=== PATIENT | female | born 1940 | race Caucasian/White ===

== ENCOUNTER 2017-09-25 11:13 | Observation (INO) | payer MEDICARE, BC ==
[~2017-09-25 11:13] MED LIST: ISOVUE-370 76%-LOCM 1 ML ONE
[2017-09-25] MEDS ORDERED: Nitroglycerin 2% Ointment 1 INCH/1 GM Packet ONE (11:36)
[2017-09-25 11:59] LABS: #Eosinphils 0.2 thou/uL (0.0-0.7); #Monocytes 0.8 thou/uL (0.11-0.59); #Neutrophils 6.2 thou/uL (1.40-6.50); %Basophils 0.4 % (0.0-1.0); %Eosinophils 2.3 % (0.0-10.0); %Lymphocytes 21.6 % (21.0-51.0); %Monocytes 8.5 % (0.0-10.0); %Neutrophils 67.2 % (42.0-75.0); Hemoglobin 13.8 g/dL (12.0-16.0); Mean Corpuscular HGB CONC 33.3 g/dL (32.0-36.0); Mean Corpuscular Hemoglobin 30.8 pg (27.0-31.0); Mean Corpuscular Volume 92.6 fl (81.0-99.0); Mean Platelet Volume 6.9 fL (7.4-10.4); Platelet Count 157 thou/uL (130-400); RBC Distribution Width 12.8 % (11.5-14.5); Red Blood Cell (RBC) Count 4.48 mill/uL (4.20-5.40); White Blood Cell (WBC) Count 9.2 thou/uL (4.8-10.8)
[2017-09-25 12:23] LABS: ALT (SGPT) 22 U/L (8-55); AST (SGOT) 35 U/L (5-34); Alkaline Phosphatase 73 U/L (40-150); Anion Gap 11 mmol/L (10-20); BUN (Urea Nitrogen) 15 mg/dL (9.8-20.1); Bilirubin, Total 0.9 mg/dL (0.2-1.2); CK (CPK) 94 U/L (29-168); Calc. Creatinine Clearance 0 mL/min (70-130); Calcium 9.9 mg/dL (7.8-10.44); Carbon Dioxide 25 mmol/L (23-31); Chloride 106 mmol/L (98-107); Estimated GFR-MDRD 72; Globulin 3.4 g/dL (2.4-3.5); Glucose 120 mg/dL (83-110); Lipase 36 U/L (8-78); Potassium 4.1 mmol/L (3.5-5.1); Protein, Total 7.4 g/dL (6.0-8.3); Sodium 138 mmol/L (136-145)
[2017-09-25 12:27] LABS: CKMB 2.7 ng/mL (0-6.6); Troponin I Less than 0.010 ng/mL (< 0.028)
--- NOTE | 2017-09-25 14:38 | CT ---
CT ANGIOGRAM OF THE CHEST: Date: 09/25/17 HISTORY: Chest pain. COMPARISON: None. TECHNIQUE: CT angiogram of the chest is performed in the axial plane. Three-dimensional reformatted images are s ubmitted for interpretation. FINDINGS: No mediastinal mass, lymphadenopathy, or hematoma. Heart is enlarged. No significant pericardial flui d. Limited evaluation of the aorta due to inadequate contrast opacification. Visualized upper solid o rgans are unremarkable. Adequate contrast opacification of the pulmonary arterial system to the level of the segmental arteri es. No filling defect to suggest thromboembolism. Patchy ground-glass opacities lung parenchyma due to edema. No consolidations. No pneumothorax or ple ural effusion. Trachea and central bronchi are patent. No lytic or blastic lesions in the osseous structures. IMPRESSION: 1. No evidence of pulmonary artery embolism to the level of the segmental arteries. 2. Ground-glass opacities suggesting edema. POS: H
[2017-09-25 15:07] LABS: Troponin I Less than 0.010 ng/mL (< 0.028)
[2017-09-25] MEDS ORDERED: Acetaminophen 325 MG TAB ONE (16:40)
[2017-09-25] MEDS ORDERED: Ondansetron ODT 4 MG TAB SL PRN (17:38)
[2017-09-25] MEDS ORDERED: Ondansetron HCl/PF 4 MG/2 ML Vial IVP PRN ×2 (17:38→19:46)
[2017-09-25 17:52] LABS: Troponin I 0.018 ng/mL (< 0.028)
[2017-09-25 19:46] VITALS: BMI 50.9
[2017-09-25] MEDS ORDERED: Acetaminophen 500 MG TAB PO PRN (19:46)
[2017-09-25] MEDS ORDERED: Ondansetron ODT 4 MG TAB PO PRN (19:46)
[2017-09-25] MEDS ORDERED: cloNIDine 0.1 MG TAB PO PRN (19:46)
[2017-09-25] MEDS ORDERED: hydrALAZINE 20 MG/ML VIAL SLOW IVP PRN (19:46)
[2017-09-25] MEDS ORDERED: Dextrose 50% Abboject 50 ML SYRINGE SLOW IVP PRN (19:46)
[2017-09-25] MEDS ORDERED: HumaLOG 300 UNITS/3 ML VIAL SC PRN ×2 (19:46)
[2017-09-25] MEDS ORDERED: Dextrose 5% in Water 1,000 ML IV PRN (19:46)
[2017-09-25] MEDS: Sodium Chloride 0.9% 1,000 ML IV SCH (20:46)
--- NOTE | 2017-09-25 21:55 | HP ---
DATE OF ADMISSION: 09/25/2017 PRIMARY CARE PROVIDER: Dr. Beth Fuentes. CHIEF COMPLAINT: Dizziness. HISTORY OF PRESENT ILLNESS: This is a 77-year-old female who presents to [facility] Emergency Department complaining of approximately 1 to 2-day history of increasing d izziness, vertigo and weakness. Patient states she got out of bed and noticed the dizziness, but was able to ambulate with a rolling walker, which she normally uses at home. Patient went to her kitche n; however, felt like she was about to pass out after the room was spinning, making it back to her wa lker and eventually sitting down. Patient had some nausea and vomiting associated with the vertigo a nd room spinning, but denied any chest pain, left arm discomfort, unilateral weakness or difficulty w ith speech. Patient states she has had an episode of vertigo in the past which resolved after treatm ent with vertiginous exercises from a local therapist. Patient denies taking any meclizine or Antive rt in the past. Patient denies any recent trauma, head injury, high altitude exposure or submersion. Patient does state that she recently returned from a long distance road trip to [place], [facility] returning in the last several days. The patient denied any unilateral lower extremity swelling or shortness of breath. Patient denies any diarrhea, exposure history, fever, chills or rash. Siddhartha lópez denied any specific change to her medication regimen, but does state that she was off her regular routine medications for several days due to the traveling to [place]. Patient states she may have missed several days of her blood pressure medications. In the emergency room, patient underwent gen eral evaluation including CT of the chest to rule out pulmonary embolus, which the study showed no ev idence for subsegmental pulmonary emboli. Screening metabolic survey was essentially unremarkable an d patient was treated with topical nitroglycerin. The patient was apparently noted with the episode of some sinus bradycardia in the emergency room with heart rates dipping into the 40s range, recoveri ng quickly into the 60s and maintaining in the 60-70 range throughout the ER observation. PAST MEDICAL HISTORY: 1. Diabetes mellitus type 2 on oral hypoglycemics. 2. Hypertension. 3. Hyperlipidemia. 4. Severe osteoarthritis. 5. Morbid obesity. 6. Depression/anxiety. 7. Chronic sleep apnea with history of nocturnal CPAP. 8. Left bundle-branch block pattern, chronic. PAST SURGICAL HISTORY: 1. Status post total vaginal hysterectomy. 2. Status post cholecystectomy. 3. Status post left carpal tunnel release. 4. Status post bilateral total knee arthroplasty. 5. Status post squamous cell carcinoma, removal of the nose. 6. Status post colonoscopy with negative findings. CURRENT MEDICATIONS: Based on previous review of medical records. 1. Oxybutynin 15 mg 1 tab p.o. daily. 2. Metformin 1000 mg p.o. b.i.d. 3. Simvastatin 40 mg p.o. at bedtime. 4. Lasix 40 mg p.o. daily. 5. Alprazolam 1 mg p.o. daily. 6. Enteric-coated aspirin 81 mg 1 tab p.o. daily. 7. Carvedilol 12.5 mg p.o. b.i.d. 8. Singulair 10 mg p.o. daily. 9. Vitamin D3 of 2000 units p.o. daily. 10. Bupropion 150 mg p.o. daily. 11. Toviaz 8 mg 1 tab p.o. q.a.m. 12. Valsartan 160 mg one tab p.o. daily. 13. Tums 200 mg 1 tab p.o. daily. 14. Vitamin B complex 1 tab p.o. daily. ALLERGIES: SULFA causing a rash. FAMILY HISTORY: Mother of pancreatic cancer at age 91, also history of coronary artery disease and hypertension. Father at age 76 with complications of coronary artery disease. SOCIAL HISTORY: Patient retired as a linen room worker. Accompanied by her son in the emergency department . No current tobacco or illicit drug use, alcohol use socially. Ambulatory with a rolling walker. No recent fall. PHYSICAL EXAMINATION: VITAL SIGNS: On admission, blood pressure 146/76, pulse 77, respiratory rate 19, temperature 97.8 de grees Fahrenheit, O2 saturation 92% on 2 liters per minute by nasal cannula. GENERAL APPEARANCE: This is a 77-year-old female, pleasant, alert, responsive, in no acute distress. HEENT: Pupils are equal, round, and reactive to light and accommodation. Extraocular muscles are in tact. No scleral icterus, no conjunctival injection. Nares patent. OP is clear. Oral mucosa dry a ppearing. NECK: Supple, no cervical adenopathy, no thyromegaly, no carotid bruits, no JVD appreciated. Cervic al spine with full active and passive range of motion. No meningeal signs appreciated. CHEST: Lungs are clear to auscultation bilaterally. No wheezing or rhonchi. CARDIOVASCULAR: S1, S2 with distant heart sounds. No murmur, rub or gallop appreciated. ABDOMEN: Obese with landmarks difficult to palpate due to patient's body habitus. Bowel sounds are positive in all four quadrants. There is no palpable mass. No rebound or guarding. EXTREMITIES: Warm and dry with fair turgor. No clubbing, cyanosis or asymmetric edema appreciated. Pulses palpable distally at the dorsalis pedis, posterior tibial, and popliteal arteries bilaterally . Capillary refill less than 2 seconds. NEUROLOGIC: Cranial nerves II-XII are grossly intact. No focal or lateralizing signs appreciated. The patient not observed ambulatory during this exam. PERTINENT LABORATORY AND X-RAY FINDINGS: Complete metabolic profile within normal limits. Troponin I negative x2. CBC within normal limits. EKG dated 09/25/2017 by my interpretation shows left bundl e-branch block pattern chronic. First degree AV block changes noted. Heart rates in the 60s. Mehnaz l R-wave progression. Normal axis. No acute ST-T wave changes appreciated. CT angiogram of the [address] st showed cardiomegaly with questionable edema, no evidence for pulmonary embolus. ASSESSMENT AND PLAN: 1. Vertigo. The patient will be observed on the telemetry unit. Multifactorial including possible middle ear involvement. Initiate meclizine 25 mg p.o. q.6 hours p.r.n. Start intravenous normal ben ine at 100 mL per hour. Check orthostatic vital signs q.4 hours x2. Check carotid ultrasound to rul e out focal stenosis. Continue serial blood pressure monitoring. Continue telemetry monitoring to r ule out an occult arrhythmia. 2. Hypertension. We will obtain accurate home blood pressure regimen and initiate once confirmed. Serial blood pressure monitoring. 3. Diabetes mellitus type 2. Insulin sliding scale for reflexive coverage. ADA diet. Resume home oral hypoglycemics in the next 24 hours. 4. Left bundle-branch block. 5. Chronic appearing when comparing previous EKGs in the electronic medical record. Continue teleme try monitoring to rule out an occult arrhythmia. 6. Morbid obesity. Consider dietitian counseling on an outpatient basis. 7. Prophylaxis. Sequential compression devices while in bed. Pepcid 20 mg p.o. b.i.d. 8. Code status is FULL. Surrogate medical decision maker is patient's son.
--- NOTE | 2017-09-25 22:06 | ULT ---
CAROTID DOPPLER: 09/25/2017 PROVIDED CLINICAL HISTORY: Dizziness and vertigo. TECHNIQUE: Thompson-scale and color Doppler sonography was performed of the extracranial carotid system bilaterally with spectral analysis performed. FINDINGS: There is no evidence for a hemodynamically significant internal carotid artery stenosis by peak systo lic velocity or ratio criteria. Atherosclerotic plaque is seen within each carotid bulb. Antegrade flow is seen in the vertebral arteries. IMPRESSION: No sonographic evidence for a hemodynamically significant internal carotid artery stenosis. POS: [facility]
[2017-09-26] MEDS: Meclizine HCl 25 MG TAB PO SCH ×2 (00:55→05:39)
[2017-09-26 05:02] LABS: Hemoglobin A1c 6.1 % (4.0-6.0)
[2017-09-26 05:06] LABS: Anion Gap 10 mmol/L (10-20); BUN (Urea Nitrogen) 14 mg/dL (9.8-20.1); Calc. Creatinine Clearance 145 mL/min (70-130); Calcium 9.5 mg/dL (7.8-10.44); Carbon Dioxide 24 mmol/L (23-31); Chloride 108 mmol/L (98-107); Estimated GFR-MDRD 85; Glucose 90 mg/dL (83-110); Magnesium 1.7 mg/dL (1.6-2.6); Sodium 138 mmol/L (136-145)
[2017-09-26] MEDS: Sodium Chloride 0.9% 1,000 ML IV SCH (05:39)
[2017-09-26 05:43] LABS: Band 3 % (5-11); Hemoglobin 12.5 g/dL (12.0-16.0); Lymphocytes 23 % (21-51); MDiff Complete? YES; Mean Corpuscular HGB CONC 33.5 g/dL (32.0-36.0); Mean Corpuscular Hemoglobin 31.1 pg (27.0-31.0); Mean Corpuscular Volume 92.9 fl (81.0-99.0); Mean Platelet Volume 7.2 fL (7.4-10.4); Monocytes 6 % (0-10); Neutrophil 68 % (42-75); Platelet Count 155 thou/uL (130-400); RBC Distribution Width 12.8 % (11.5-14.5); Red Blood Cell (RBC) Count 4.01 mill/uL (4.20-5.40); White Blood Cell (WBC) Count 12.2 thou/uL (4.8-10.8)
--- NOTE | 2017-09-26 07:51 | PDOC.PN ---
- Subjective Encounter Start Date: 09/26/17 Encounter Start Time: 09:30 Subjective: Dizziness and vertigo resolved. No more N/V. No more presyncope symptoms. - Objective Resuscitation Status: Resuscitation Status FULL:Full Resuscitation MAR Reviewed: Yes Vital Signs & Weight: Vital Signs (12 hours) Temp Pulse Resp BP BP Pulse Ox 09/26/17 07:41 97.4 F L 66 16 09/26/17 04:00 97.4 F L 66 16 140/65 93 L 09/26/17 00:03 98.4 F 73 18 123/60 94 L 09/26/17 00:00 98.4 F 73 18 123/60 94 L 09/25/17 20:20 97.2 F L 61 18 143/61 H 93 L Weight Weight 287 lb 6.4 oz I&O: 09/25/17 09/26/17 09/27/17 06:59 06:59 06:59 Intake Total 1200 Output Total 1 Balance 1199 Result Diagrams: 09/26/17 03:50 09/26/17 03:50 Additional Labs: Accuchecks 09/26/17 09/25/17 05:34 20:13 POC Glucose 110 125 H Phys Exam - Physical Examination Constitutional: NAD HEENT: moist MMs Respiratory: no wheezing, no rales, no rhonchi Cardiovascular: RRR, no significant murmur Gastrointestinal: soft, non-tender, positive bowel sounds obese Musculoskeletal: no edema Neurological: non-focal, moves all 4 limbs NIHSS 0, HINTS exam negative, Test of gait baseline with rolling walker Psychiatric: normal affect, A&O x 3 Dx/Plan (1) Vertigo Code(s): R42 - DIZZINESS AND GIDDINESS Status: Resolved Comment: Carotid doppler negative, on meclizine, symptoms resolved (2) Diabetes mellitus type 2 in obese Code(s): E11.69 - TYPE 2 DIABETES MELLITUS WITH OTHER SPECIFIED COMPLICATION; E66.9 - OBESITY, UNSPECIFIED Status: Chronic (3) HTN (hypertension) Code(s): I10 - ESSENTIAL (PRIMARY) HYPERTENSION Status: Chronic (4) Hyperlipidemia Code(s): E78.5 - HYPERLIPIDEMIA, UNSPECIFIED Status: Chronic (5) AMBER (obstructive sleep apnea) Code(s): G47.33 - OBSTRUCTIVE SLEEP APNEA (ADULT) (PEDIATRIC) Status: Chronic Comment: on CPAP (6) Morbid obesity Code(s): E66.01 - MORBID (SEVERE) OBESITY DUE TO EXCESS CALORIES Status: Chronic (7) Anxiety and depression Code(s): F41.9 - ANXIETY DISORDER, UNSPECIFIED; F32.9 - MAJOR DEPRESSIVE DISORDER, SINGLE EPISODE, UNSPECIFIED Status: Chronic - Plan cont current plan of care ok to d/c home, try to arrange home health for PT/OT * . - Discharge Day Encounter end time: 09:45
[2017-09-26 08:24] VITALS: BP 135/69; TEMP 97.6
--- NOTE | 2017-09-26 10:50 | DIS ---
PRIMARY CARE PHYSICIAN: Dr. Beth Fuentes ADMISSION DIAGNOSES: Vertigo and dizziness. DISCHARGE DIAGNOSES: 1. Vertigo, resolved, likely acute labyrinthitis. 2. Diabetes mellitus type 2. 3. Hypertension. 4. Hyperlipidemia. 5. Obstructive sleep apnea. 6. Morbid obesity. 7. Anxiety and depression. PROCEDURES: 1. CT angio of the chest/thorax showing no evidence for pulmonary embolism, but some ground glass op acities suggestive of edema. 2. Carotid Doppler ultrasound showing no sonographic evidence for hemodynamically significant internet sales representative al carotid artery stenosis. CONSULTATIONS: None. HOSPITAL COURSE: This is a 77-year-old obese white female who gets around with a rolling walker at [facility], recently returned from a multi-day car trip with family around the [facility]. She complains of 1-2 day history of increasing dizziness, vertigo and weakness. This progressed to where even tho ugh she was able to get up and get around with her walker she started to feel like she was going to p ass out. She also had some nausea and vomiting. The patient was evaluated in the emergency room. S he did have a short dip of her heart rate into in the 40s in the emergency room, but it jumped back u p in the 60s and 70s has remained there ever since. The patient did report that she had a similar ep isode about 4-5 years ago that resolved spontaneously for which she saw a therapist. The patient was given meclizine q.6h. and had complete resolution of her symptoms. On the day of discharge, I did e xamine the patient. I did a full neurologic exam which was normal. She has normal cerebellar testin g. She had negative Hints exam, I was also able to get her up with a rolling walker and she was able to walk with a steady gait and stated she was back to baseline. Given the resolution with meclizine and the negative Hints exam and test of gait, the patient is low risk for a basilar stroke as the et iology. This is most likely is a viral labyrinthitis, which is now improving. She is safe to discha rge home. She does have a son coming in to visit tomorrow and will be here for several days to stay with her and her other son and [id number] are available to transport her home and to watch over her. I am going to try and arrange for some home health with physical therapy to help her with her a mbulation. DISCHARGE MANAGEMENT: Discharged home with home health if possible. ACTIVITY: As tolerated. DIET: Diabetic diet. Occupational and physical therapy if able to arrange. FOLLOWUP: The patient is to follow up with Dr. Fuentes in 1 week. If she is still having persisten t symptoms, she may need referral to Neurology or to ENT. DISCHARGE MEDICATIONS: The patient is to resume all her home medications plus Meclizine 25 mg p.o. q.6 hours as needed for dizziness, 30 tablets dispensed.
== END 2017-09-26 11:50 | disposition home health service (06) ==
LOC: ERS 11:13 → 2NO 14:16
PROVIDERS: ADMIT Family Medicine; ATTEND Family Medicine
DX: R42 Dizziness and giddiness (principal); E11.9 Type 2 diabetes mellitus without complications; I10 Essential (primary) hypertension; E78.5 Hyperlipidemia, unspecified; M19.90 Unspecified osteoarthritis, unspecified site; F41.8 Other specified anxiety disorders; I44.7 Left bundle-branch block, unspecified; G47.33 Obstructive sleep apnea (adult) (pediatric); E66.01 Morbid (severe) obesity due to excess calories; Z68.43 Body mass index [BMI] 50.0-59.9, adult; Z79.84 Long term (current) use of oral hypoglycemic drugs; Z79.82 Long term (current) use of aspirin; Z79.899 Other long term (current) drug therapy; Z88.2 Allergy status to sulfonamides; Z79.51 Long term (current) use of inhaled steroids; Z99.89 Dependence on other enabling machines and devices
CPT/HCPCS: 71275; 80048; 80053; 80307; 82550; 82553; 82962 ×2; 83036; 83690; 83735; 84443; 84484 ×2; 85007; 85025; 85027; 93005; 93880; 96360; 96361 ×2; 99285; G0378; 36415; 36416

== ENCOUNTER 2018-07-29 20:37 | Emergency (ER) | payer MEDICARE, BC ==
[2018-07-29 21:20] LABS: #Basophils 0.1 thou/uL (0.0-0.2); #Eosinphils 0.4 thou/uL (0.0-0.7); #Lymphocytes 2.9 thou/uL (1.20-3.40); #Neutrophils 8.2 thou/uL (1.40-6.50); %Basophils 0.8 % (0.0-1.0); %Eosinophils 3.1 % (0.0-10.0); %Lymphocytes 23.2 % (21.0-51.0); %Monocytes 7.7 % (0.0-10.0); %Neutrophils 65.2 % (42.0-75.0); Hemoglobin 13.6 g/dL (12.0-16.0); Mean Corpuscular HGB CONC 33.3 g/dL (32.0-36.0); Mean Corpuscular Hemoglobin 31.5 pg (27.0-31.0); Mean Corpuscular Volume 94.5 fL (78.0-98.0); Mean Platelet Volume 6.9 fL (7.4-10.4); Platelet Count 166 thou/uL (130-400); RBC Distribution Width 12.9 % (11.5-14.5); Red Blood Cell (RBC) Count 4.31 mill/uL (4.20-5.40); White Blood Cell (WBC) Count 12.5 thou/uL (4.8-10.8)
[2018-07-29 21:47] LABS: ALT (SGPT) 23 U/L (8-55); AST (SGOT) 33 U/L (5-34); Albumin 4.3 g/dL (3.4-4.8); Alkaline Phosphatase 77 U/L (40-150); Anion Gap 12 mmol/L (10-20); BUN (Urea Nitrogen) 15 mg/dL (9.8-20.1); Bilirubin, Total 0.8 mg/dL (0.2-1.2); Calc. Creatinine Clearance 0 mL/min (70-130); Calcium 10.4 mg/dL (7.8-10.44); Carbon Dioxide 29 mmol/L (23-31); Chloride 103 mmol/L (98-107); Estimated GFR-MDRD 66; Globulin 3.4 g/dL (2.4-3.5); Glucose 94 mg/dL (83-110); Lipase 24 U/L (8-78); Potassium 4.1 mmol/L (3.5-5.1); Protein, Total 7.7 g/dL (6.0-8.3); Sodium 140 mmol/L (136-145)
[2018-07-29 21:49] LABS: Bilirubin Negative (Negative); Blood, Urine Negative (Negative); Clarity CLEAR (Clear); Glucose, Urine (Dipstick) Negative (Negative); Leukocyte Small (Negative); Nitrite Positive (Negative); Protein, Urine (Dipstick) Negative (Neg-Trace); Specific Gravity, Urine 1.022 (1.002-1.036); Urobilinogen 0.2 mg/dL (0.2-1.0); pH, Urine 5.5 (5.0-9.0)
[2018-07-29 21:50] LABS: Bacteria/HPF 4+ HPF (None Seen); Hyaline Casts/LPF 0-3 HYALINE CAST LPF (0-3 Hyaline); Pathc Cast-AUWi Flag 0.81 (0-2.49); Squamous Epithelial 0-3 HPF (0-3)
[2018-07-29 21:59] LABS: RBC/HPF 0-3 HPF (0-3)
--- NOTE | 2018-07-29 22:12 | RAD ---
CHEST ONE VIEW ABDOMEN TWO VIEWS 07/29/18 HISTORY: Abdomen pain. Ileus. FINDINGS: Cardiac silhouette is unremarkable. There is no confluent air space consolidation or evidence of free subdiaphragmatic gas. Gas and stool overlie the colon and rectum. No differential air fluid levels. Phleboliths project over the pelvis. IMPRESSION: No significant abnormalities are demonstrated. POS: [facility]
== END 2018-07-29 23:22 | disposition home or self-care (01) ==
LOC: ERS 20:37
DX: K59.00 Constipation, unspecified (principal); N39.0 Urinary tract infection, site not specified; I10 Essential (primary) hypertension; J45.909 Unspecified asthma, uncomplicated; E11.9 Type 2 diabetes mellitus without complications; E78.5 Hyperlipidemia, unspecified
CPT/HCPCS: 51701; 74022; 80053; 81003; 81015; 83690; 85025; 87077; 87086; 87186